=== PATIENT | male | born 1995 | race Caucasian/White ===

== ENCOUNTER 2017-06-27 20:52 | Inpatient (IN) | payer MEDICAID, OTHER ==
[~2017-06-27] VITALS: Ht 180.3 cm; Wt 63.6 kg
[~2017-06-27 20:52] MED LIST: Z.0.NO CURRENT MEDS
[2017-06-27 20:56] VITALS: BP 132/82; PULSE 82; RESP 20; TEMP 98.4; O2SAT 97
[2017-06-27 21:15] VITALS: RESP 19; O2SAT 100
--- NOTE | 2017-06-27 21:26 | RADRPT ---
EXAM DATE/TIME: 06/27/2017 21:21 [facility] COMPARISON: No previous studies available for comparison. INDICATIONS : Chest pain, denies injury MEDICAL HISTORY : None. SURGICAL HISTORY : None. ENCOUNTER: Initial ACUITY: 2 days PAIN SCORE: 2/10 LOCATION: chest FINDINGS: Large right-sided pneumothorax. There is slight mediastinal shift to the left. Left lung is clear. No pleural effusion seen. CONCLUSION: Large pneumothorax on the right with a mild tension component. Alex Lin MD on June 27, 2017 at 21:23 Board Certified Radiologist. This report was verified electronically.
[2017-06-27] MEDS ORDERED: KETAMINE HCL 500 MG/5 ML VIAL IV PUSH ONE (21:30)
[2017-06-27] MEDS ORDERED: SODIUM CHLORIDE 0.9% FLUSH 10 ML FLUSH IVF PRN (21:30)
[2017-06-27] MEDS ORDERED: LIDOCAINE 1%/EPINEPHrine 1:100,000 SOLN 20 ML VIAL INFIL ONE (21:30)
[2017-06-27] MEDS ORDERED: LIDOCAINE 1%/EPINEPHrine 1:100,000 SOLN 50 ML VIAL ONE (21:40)
[2017-06-27] MEDS ORDERED: ONDANSETRON HCL 4 MG/2 ML VIAL ONE (21:44)
[2017-06-27] MEDS ORDERED: LORazepam 2 MG/ML VIAL IV PUSH ONE (21:45)
[2017-06-27] MEDS ORDERED: HYDROmorphone HCL PF 2 MG/ML VIAL IV PUSH ONE (21:45)
--- NOTE | 2017-06-27 22:10 | RADRPT ---
EXAM DATE/TIME: 06/27/2017 21:51 [facility] COMPARISON: No previous studies available for comparison. INDICATIONS : Post chest tube placement right lung MEDICAL HISTORY : None. SURGICAL HISTORY : None. ENCOUNTER: Subsequent ACUITY: 2 days PAIN SCORE: 6/10 LOCATION: Right chest FINDINGS: Small caliber chest tube has been placed laterally on the right. Right pneumothorax is now small. No tension component. No infiltrate or effusion. CONCLUSION: Much decreased right pneumothorax after chest tube placement, currently small. No tension. Alex Lin MD on June 27, 2017 at 22:07 Board Certified Radiologist. This report was verified electronically.
[2017-06-27 22:32] LABS: AUTOMATED NEUTROPHIL # 5.8 TH/MM3 (1.8-7.7); BASOPHIL % 0.4 % (0.0-2.0); EOSINOPHIL # 0.3 TH/MM3 (0-0.4); EOSINOPHIL % 3.5 % (0.0-4.0); HEMATOCRIT 41.5 % (39.0-51.0); HEMOGLOBIN 14.7 GM/DL (13.0-17.0); LYMPH % 23.5 % (9.0-44.0); LYMPHOCYTE # 2.1 TH/MM3 (1.0-4.8); MEAN CELL VOLUME 85.9 FL (80.0-100.0); MEAN CORPUSCULAR HEMOGLOBIN 30.4 PG (27.0-34.0); MEAN CORPUSCULAR HGB CONC 35.4 % (32.0-36.0); MONO % 6.9 % (0.0-8.0); MONOCYTE # 0.6 TH/MM3 (0-0.9); NEUT % 65.7 % (16.0-70.0); PLATELET COUNT 235 TH/MM3 (150-450); RED BLOOD COUNT 4.83 MIL/MM3 (4.50-5.90); RED CELL DISTRIBUTION WIDTH 12.8 % (11.6-17.2); WHITE BLOOD COUNT 8.8 TH/MM3 (4.0-11.0)
[2017-06-27 22:42] LABS: BICARBONATE 27.8 MEQ/L (21.0-32.0); CALCIUM 8.6 MG/DL (8.5-10.1); CREATININE 0.83 MG/DL (0.60-1.30)
[2017-06-27 22:52] LABS: PROTHROMBIN TIME - PATIENT 10.4 SEC (9.8-11.6)
[2017-06-27] MEDS ORDERED: LACTULOSE SYRUP 20 GM/30 ML CUP PO PRN (23:00)
[2017-06-27] MEDS ORDERED: SODIUM CHLORIDE 0.9% FLUSH 10 ML FLUSH IV FLUSH PRN (23:00)
[2017-06-27] MEDS ORDERED: RESP: ALBUTEROL 2.5 MG/IPRATROPIUM 0.5 MG NEB (PRN) INH (23:00)
[2017-06-27] MEDS ORDERED: BISACODYL 10 MG SUPP RECTAL PRN (23:00)
[2017-06-27] MEDS ORDERED: SENNOSIDES 8.6 MG TAB PO PRN (23:00)
[2017-06-27] MEDS ORDERED: MISCELLANEOUS NURSING INFORMATION XX SCH (23:00)
[2017-06-27] MEDS ORDERED: CHLORHEXIDINE GLUCONATE 2 % 1 PACK (2 CLOTHS) TOP PRN (23:00)
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
[2017-06-27] MEDS: SODIUM CHLOR 0.9% 1000 ML INJ 1,000 ML IV SCH (23:38)
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
[2017-06-27] MEDS ORDERED: IOHEXOL 350 MG/ML 10 ML VIAL (for RAD DIAG) IVCONTRAST ONE (23:45)
[2017-06-28] VITALS (16 sets, daily range): BP systolic 101–135; BP diastolic 53–81; PULSE 59–82; RESP 16–25; TEMP 97.7–99.2; O2SAT 95–96
--- NOTE | 2017-06-28 00:04 | RADRPT ---
EXAM DATE/TIME: 06/27/2017 23:44 [facility] COMPARISON: No previous studies available for comparison. INDICATIONS : Short of breath and chest pain, pneumothorax, and post chest tube placement. IV CONTRAST: 60 cc Omnipaque 350 (iohexol) IV RADIATION DOSE: 5.10 CTDIvol (mGy) MEDICAL HISTORY : None SURGICAL HISTORY : None. ENCOUNTER: Initial ACUITY: 1 day PAIN SCALE: 8/10 LOCATION: chest TECHNIQUE: Volumetric scanning of the chest was performed. Using automated exposure control and adjustment of t he mA and/or kV according to patient size, radiation dose was kept as low as reasonably achievable to obtain optimal diagnostic quality images. DICOM format image data is available electronically for review and comparison. Follow-up recommendations for detected pulmonary nodules are based at a minimum on nodule size and pa tient risk factors according to Fleischner Society Guidelines. FINDINGS: LUNGS: There multiple patchy areas of suspected consolidation or atelectasis seen throughout the right lung being most prominent in the posterior aspect of the right upper lobe. The left lung is clear. Emphyse matous changes not seen. PLEURA: There is a persistent right pneumothorax measuring up to 2.8 cm anteriorly. There is a right-sided pi gtail catheter in place. This appears well placed. MEDIASTINUM: The heart and great vessels demonstrate no acute abnormality. There is no mediastinal or hilar lymph adenopathy. AXILLAE: Within normal limits. No lymphadenopathy. SKELETAL: Within normal limits for patient age. MISCELLANEOUS: The visualized upper abdominal organs demonstrate no acute abnormality. CONCLUSION: 1. Persistent moderate pneumothorax on the right with a pigtail catheter in the right pleural space. 2. Patchy areas of consolidation or atelectasis seen throughout the right lung. Alex Chang MD on June 27, 2017 at 23:59 Board Certified Radiologist. This report was verified electronically.
[2017-06-28] MEDS: oxyCODONE/ACETAMINOPHEN 5 MG/325 MG TAB PO PRN ×3 (00:09→13:02)
[2017-06-28] MEDS: CHLORHEXIDINE GLUCONATE 2 % 1 PACK (2 CLOTHS) TOP SCH (04:00)
[2017-06-28] MEDS: ENOXAPARIN SODIUM 40 MG/0.4 ML SYRINGE SQ SCH (08:08)
[2017-06-28] MEDS: SODIUM CHLORIDE 0.9% FLUSH 10 ML FLUSH IV FLUSH SCH ×2 (08:08→21:00)
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
[2017-06-28] MEDS: SODIUM CHLOR 0.9% 1000 ML INJ 1,000 ML IV SCH ×2 (10:55→23:16)
[2017-06-29] VITALS (13 sets, daily range): BP systolic 116–143; BP diastolic 59–74; PULSE 52–78; RESP 19–26; TEMP 98–99.3; O2SAT 91–100
[2017-06-29] MEDS: CHLORHEXIDINE GLUCONATE 2 % 1 PACK (2 CLOTHS) TOP SCH (04:00)
--- NOTE | 2017-06-29 06:25 | RADRPT ---
EXAM DATE/TIME: 06/29/2017 04:14 [facility] COMPARISON: CHEST SINGLE AP, June 27, 2017, 21:51. INDICATIONS : Follow up right pneumothorax. MEDICAL HISTORY : None. SURGICAL HISTORY : None. ENCOUNTER: Subsequent ACUITY: 3 days PAIN SCORE: Non-responsive. LOCATION: Bilateral chest FINDINGS: There is a large tension pneumothorax seen on the right. There is a right chest tube in place. There is shift of the heart and mediastinal structures towards the left. The left lung is clear. The heart size is normal. CONCLUSION: Large tension pneumothorax on the right. There is a right pigtail catheter in the lateral aspect of t he right chest. This information was relayed to Abel, the patient's nurse. Alex Chang MD on June 29, 2017 at 6:13 Board Certified Radiologist. This report was verified electronically.
[2017-06-29] MEDS ORDERED: LIDOCAINE HCL 2% 50 ML VIAL INFIL ONE (07:00)
[2017-06-29] MEDS ORDERED: MIDAZOLAM HCL 5 MG/ML VIAL (1 ML) ONE (07:00)
[2017-06-29] MEDS ORDERED: MIDAZOLAM HCL 5 MG/ML VIAL (1 ML) IV PUSH ONE (08:15)
--- NOTE | 2017-06-29 08:36 | RADRPT ---
EXAM DATE/TIME: 06/29/2017 07:31 [facility] COMPARISON: CHEST SINGLE AP, June 29, 2017, 4:14. INDICATIONS : Chest tube. MEDICAL HISTORY : None. SURGICAL HISTORY : None. ENCOUNTER: Subsequent ACUITY: 4 - 6 days PAIN SCORE: 5/10 LOCATION: Bilateral chest FINDINGS: AP upright portable view of the chest demonstrates interval placement of a right-sided chest tube and drain within the inferior right chest. There has been a region of the right lung with only a small r ight apical pneumothorax present measuring 1.8 cm craniocaudally at the lung apex. The left hemithora x is clear. The heart size is normal. Pulmonary vasculature appears normal. CONCLUSION: Interval placement of a right-sided chest tube and drain within the right lung base. Significant reex pansion of the right hemithorax with only a small right apical pneumothorax present. Rain Rodrigues MD on June 29, 2017 at 8:32 Board Certified Radiologist. This report was verified electronically.
[2017-06-29] MEDS: SODIUM CHLORIDE 0.9% FLUSH 10 ML FLUSH IV FLUSH SCH ×2 (09:21→20:10)
[2017-06-29] MEDS: ENOXAPARIN SODIUM 40 MG/0.4 ML SYRINGE SQ SCH (09:22)
[2017-06-29] MEDS: oxyCODONE/ACETAMINOPHEN 5 MG/325 MG TAB PO PRN ×3 (09:36→20:10)
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
[2017-06-29] MEDS: SODIUM CHLOR 0.9% 1000 ML INJ 1,000 ML IV SCH ×2 (10:41→20:15)
--- NOTE | 2017-06-29 16:44 | RADRPT ---
EXAM DATE/TIME: 06/29/2017 16:01 [facility] COMPARISON: CHEST SINGLE AP, June 29, 2017, 7:31. INDICATIONS : Follow up right pneumothorax. MEDICAL HISTORY : None. SURGICAL HISTORY : None. ENCOUNTER: Subsequent ACUITY: 3 days PAIN SCORE: 7/10 LOCATION: Right chest FINDINGS: Single AP view of the chest. 2 right-sided chest tubes remain in place. Right-sided pneumothorax is a gain seen. It now measures 13 mm at the apex compared to 18 mm on the prior study of earlier today. L ungs are clear. CONCLUSION: Decrease in size of right apical pneumothorax. 2 right-sided chest tubes remain in place. Se Kiser MD on June 29, 2017 at 16:41 Board Certified Radiologist. This report was verified electronically.
--- NOTE | 2017-06-29 16:47 | PD.PROCEDR ---
Procedure Note Procedure Tube Thoracostomy Procedure Note Diagnosis: Large right pneumothorax Indications: Same as above Consent: Verbal consent was obtained from the patient Anesthesia: Midazolam and fentanyl Description of the Procedure: The patient was placed in the supine position. The arm was abducted above the head and secured. The right lateral chest was prepped and draped sterilely to include the axilla and nipple. 1% Lidocaine was infiltrated subcutaneously and into the tissues down to the periosteum of the rib. The 5th intercostal space was identified. A small incision was made using a #11 blade. At the mid-axillary line, blunt dissection was performed until the rib was palpated. A Marge clamp was used to bluntly enter the pleura immediately above the adjacent rib. The space was opened bluntly with the Marge clamp. A finger was inserted and lung and pleura were felt. A 28 Fr chest tube was inserted along the course of the finger and into the pleural cavity easily and without resistance. The chest tube was connected to a Pleur-o-vac and connected to 20 cm H2O suction. The catheter was sutured to the skin using a 0 silk sandal suture and an occlusive dressing was applied. There were no immediate complications noted. There was minimal EBL. The patient tolerated the procedure well. Chest Tube output: gush of air upon entry in the pleural space A Chest x-ray has been ordered and reviewed. Chest tube is in good position and pneumothorax is improved. Joel Burnett MD Jun 29, 2017 16:47
[2017-06-29] MEDS ORDERED: MORPHINE SULFATE 2 MG/ML INJ IM PRN (18:15)
[2017-06-30] VITALS (13 sets, daily range): BP systolic 102–143; BP diastolic 60–79; PULSE 58–86; RESP 17–27; TEMP 97.9–98.3; O2SAT 97–100
[2017-06-30] MEDS: CHLORHEXIDINE GLUCONATE 2 % 1 PACK (2 CLOTHS) TOP SCH (04:00)
[2017-06-30] MEDS: oxyCODONE/ACETAMINOPHEN 5 MG/325 MG TAB PO PRN ×4 (04:28→21:45)
[2017-06-30 05:11] LABS: HEMATOCRIT 42.8 % (39.0-51.0); MEAN CELL VOLUME 86.6 FL (80.0-100.0); MEAN CORPUSCULAR HEMOGLOBIN 30.3 PG (27.0-34.0); MEAN CORPUSCULAR HGB CONC 34.9 % (32.0-36.0); MEAN PLATELET VOLUME 8.8 FL (7.0-11.0); PLATELET COUNT 215 TH/MM3 (150-450); RED BLOOD COUNT 4.94 MIL/MM3 (4.50-5.90); RED CELL DISTRIBUTION WIDTH 12.8 % (11.6-17.2); WHITE BLOOD COUNT 7.2 TH/MM3 (4.0-11.0)
[2017-06-30 05:31] LABS: BICARBONATE 28.4 MEQ/L (21.0-32.0); CALCIUM 8.5 MG/DL (8.5-10.1); CREATININE 0.8 MG/DL (0.60-1.30)
[2017-06-30] MEDS: SODIUM CHLORIDE 0.9% FLUSH 10 ML FLUSH IV FLUSH SCH (09:00)
--- NOTE | 2017-06-30 09:10 | RADRPT ---
EXAM DATE/TIME: 06/30/2017 08:35 [facility] COMPARISON: CHEST SINGLE AP, June 29, 2017, 16:01. INDICATIONS : Shortness of breath. Evaluate for pneumothorax. MEDICAL HISTORY : None. SURGICAL HISTORY : None. ENCOUNTER: Subsequent ACUITY: 3 days PAIN SCORE: 0/10 LOCATION: Bilateral chest FINDINGS: Right sided chest tubes with decrease in size of a right apical pneumothorax now measuring only 9 mm within the lung apex as compared to 1.3 cm on prior exam. The left hemithorax is clear. Heart size is normal and pulmonary vasculature is normal. Osseous structures appear intact. CONCLUSION: Decreasing size of the right-sided pneumothorax with only a small apical pneumothorax present now lesly suring 9 mm. Rain Rodrigues MD on June 30, 2017 at 9:06 Board Certified Radiologist. This report was verified electronically.
[2017-06-30] MEDS: ENOXAPARIN SODIUM 40 MG/0.4 ML SYRINGE SQ SCH (09:30)
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
--- NOTE | 2017-06-30 12:32 | EKG ---
Date Performed: 06/29/2017 Time Performed: 12:23:20 PTAGE: 21 years EKG: Sinus arrhythmia. Possible right atrial abnormality Compared to previous tracing, rate has slowed Borderline ECG NO PREVIOUS TRACING DOCTOR: Negro Staton Interpretating Date/Time 06/30/2017 12:31:12
[2017-07-01] VITALS (12 sets, daily range): BP systolic 123–138; BP diastolic 57–74; PULSE 60–109; RESP 14–21; TEMP 97.9–98.8; O2SAT 97–100
[2017-07-01] MEDS: CHLORHEXIDINE GLUCONATE 2 % 1 PACK (2 CLOTHS) TOP SCH (04:00)
[2017-07-01] MEDS: oxyCODONE/ACETAMINOPHEN 5 MG/325 MG TAB PO PRN ×4 (04:32→20:07)
--- NOTE | 2017-07-01 05:16 | RADRPT ---
EXAM DATE/TIME: 07/01/2017 04:20 [facility] COMPARISON: CHEST SINGLE AP, June 30, 2017, 8:35. INDICATIONS : Short of breath. MEDICAL HISTORY : None. SURGICAL HISTORY : None. ENCOUNTER: Initial ACUITY: 1 week PAIN SCORE: 0/10 LOCATION: Bilateral chest FINDINGS: A single view of the chest demonstrates a slight increase in size of right pneumothorax is seen at 28 with about 2 cm of pleural separation. Right chest tube remains in place. Left lung clear. No new co nsolidation or effusion. CONCLUSION: 1. Right chest tube with small right pneumothorax which is increased in size from June 30. Previou s small caliber right chest tube has been removed. Left lung clear. Laureano Ariza MD on July 01, 2017 at 5:11 Board Certified Radiologist. This report was verified electronically.
[2017-07-01] MEDS: ENOXAPARIN SODIUM 40 MG/0.4 ML SYRINGE SQ SCH (08:03)
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
[2017-07-01] MEDS: MAGNESIUM HYDROXIDE SUSP 30 ML CUP PO PRN (15:49)
[2017-07-02] VITALS (10 sets, daily range): BP systolic 128–140; BP diastolic 73–86; PULSE 70–88; RESP 18–19; TEMP 98.4–99.2; O2SAT 95–99
[2017-07-02] MEDS ORDERED: CYCLOBENZAPRINE HCL 10 MG TAB PO ONE (01:00)
[2017-07-02] MEDS: CHLORHEXIDINE GLUCONATE 2 % 1 PACK (2 CLOTHS) TOP SCH (03:11)
[2017-07-02] MEDS: oxyCODONE/ACETAMINOPHEN 5 MG/325 MG TAB PO PRN (06:07)
--- NOTE | 2017-07-02 07:06 | RADRPT ---
EXAM DATE/TIME: 07/02/2017 05:51 [facility] COMPARISON: CHEST SINGLE AP, July 01, 2017, 4:20. INDICATIONS : Evaluate pneumothorax and right side chest tube MEDICAL HISTORY : pneumothorax SURGICAL HISTORY : chest tube ENCOUNTER: Subsequent ACUITY: 1 week PAIN SCORE: 8/10 LOCATION: Bilateral chest FINDINGS: Right chest tube remains in place. [id number] pneumothorax at the apex again seen, not signifi cantly changed. Mild left base atelectasis. No large effusion demonstrated. No left pneumothorax. Heart size within normal limits. CONCLUSION: No significant change small to moderate right pneumothorax. Right chest tube remains in place. Alex Lin MD on July 02, 2017 at 7:03 Board Certified Radiologist. This report was verified electronically.
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
--- NOTE | 2017-07-02 08:27 | RADRPT ---
EXAM DATE/TIME: 07/02/2017 08:10 [facility] COMPARISON: CT THORAX W CONTRAST, June 27, 2017, 23:44. INDICATIONS : Follow up for right pneumothorax RADIATION DOSE: 5.54 CTDIvol (mGy) MEDICAL HISTORY : Right pneumothorax SURGICAL HISTORY : None. ENCOUNTER: Subsequent ACUITY: 4 - 6 days PAIN SCALE: 6/10 LOCATION: Right chest TECHNIQUE: Volumetric scanning of the chest was performed. Using automated exposure control and adjustment of t he mA and/or kV according to patient size, radiation dose was kept as low as reasonably achievable to obtain optimal diagnostic quality images. DICOM format image data is available electronically for r eview and comparison. Follow-up recommendations for detected pulmonary nodules are based at a minimum on nodule size and pa tient risk factors according to Fleischner Society Guidelines. FINDINGS: LUNGS: Right-sided chest tube is seen which is in the major fissure. Small anterior, lateral and basilar pne umothorax. There is minimal right apical density. No concerning pulmonary nodule is visualized. PLEURAE: Small hemothorax on the right. There is no pleural thickening or pleural effusion on the left. MEDIASTINUM: The heart and great vessels demonstrate no acute abnormality. There is no mediastinal or hilar lymph adenopathy. AXILLAE: Within normal limits. No lymphadenopathy. MUSCULOSKELETAL: Within normal limits for patient age. MISCELLANEOUS: The visualized upper abdominal organs demonstrate no acute abnormality. CONCLUSION: 1. The right-sided chest tube is seen and lies within the major fissure. 2. Small pneumothorax remains on the right. 3. Minimal density in the right upper lobe has almost completely resolved. Mg Ross MD on July 02, 2017 at 8:21 Board Certified Radiologist. This report was verified electronically.
[2017-07-02] MEDS: ENOXAPARIN SODIUM 40 MG/0.4 ML SYRINGE SQ SCH (09:10)
[2017-07-02] MEDS ORDERED: CYCLOBENZAPRINE HCL 10 MG TAB PO PRN (11:15)
[2017-07-02] MEDS ORDERED: PILL SPLITTER OTHER PRN (12:00)
[2017-07-02] MEDS: MAGNESIUM HYDROXIDE SUSP 30 ML CUP PO PRN (15:20)
--- NOTE | 2017-07-02 15:22 | PD.CAR.PN ---
CVT Progress Note Subjective/Hospital Course: no air leak clamp tube overnight unclamp for any distress if persistent PTX, eval for vats tomorrow NPO after midnight Objective: Vital Signs Date Time Temp Pulse Resp B/P (MAP) Pulse Ox O2 Delivery O2 Flow Rate FiO2 07/02/17 12:02 98.4 70 18 130/84 (99) 97 07/02/17 08:02 98.5 72 18 129/86 (100) 97 07/02/17 07:47 71 07/02/17 04:00 99.2 85 18 137/77 (97) 95 07/02/17 03:45 78 07/02/17 00:04 75 07/02/17 00:00 98.8 82 19 137/73 (94) 97 07/02/17 00:00 Room Air 07/01/17 20:29 74 07/01/17 20:00 Room Air 07/01/17 20:00 98.8 82 18 136/70 (92) 97 07/01/17 16:02 98.2 68 18 134/72 (92) 99 07/01/17 16:00 109 Result Diagram: 06/30/17 0420 06/30/17 0420 Rain Bal Jul 02, 2017 15:22
[2017-07-02] MEDS ORDERED: SOD PHOSPHATE/SOD BIPHOSPHATE (ADULT) ENEMA 133ML RECTAL PRN (15:45)
[2017-07-02] MEDS ORDERED: GLYCERIN ADULT 2 GM SUPP RECTAL ONE (15:45)
[2017-07-02] MEDS ORDERED: LACTULOSE SYRUP 20 GM/30 ML CUP PO ONE (15:45)
[2017-07-03] VITALS (9 sets, daily range): BP systolic 121–137; BP diastolic 59–79; PULSE 64–84; RESP 17–19; TEMP 97.7–99.2; O2SAT 97–98
[2017-07-03] MEDS: CHLORHEXIDINE GLUCONATE 2 % 1 PACK (2 CLOTHS) TOP SCH ×2 (03:24→03:34)
--- NOTE | 2017-07-03 06:43 | RADRPT ---
EXAM DATE/TIME: 07/03/2017 05:57 [facility] COMPARISON: CHEST SINGLE AP, July 02, 2017, 5:51. INDICATIONS : Evaluate pneumothorax. MEDICAL HISTORY : pneumothorax. SURGICAL HISTORY : chest tube ENCOUNTER: Subsequent ACUITY: 1 week PAIN SCORE: 8/10 LOCATION: Bilateral chest FINDINGS: A single view of the chest demonstrates right chest tube with small right pneumothorax slightly impro misti from July 02. Minimal subsegmental atelectasis in the lungs. No effusion. CONCLUSION: 1. Right chest tube with small right pneumothorax slightly improved from July 02. Laureano Ariza MD on July 03, 2017 at 6:39 Board Certified Radiologist. This report was verified electronically.
[2017-07-03] MEDS: ENOXAPARIN SODIUM 40 MG/0.4 ML SYRINGE SQ SCH (08:56)
[2017-07-03] MEDS ORDERED: POLYETHYLENE GLYCOL 17 GM PKG PO ONE (12:30)
[2017-07-03] MEDS ORDERED: BISACODYL EC 5 MG TABEC PO ONE (12:30)
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
--- NOTE | 2017-07-03 15:07 | PD.CAR.PN ---
CVT Progress Note Subjective/Hospital Course: no air leak clamp tube overnight unclamp for any distress if persistent PTX, eval for vats tomorrow NPO after midnight 07/03 CXR stable / small right PTX improved chest tube dc without difficultly vaseline gauze dressing to chest recheck CXR in am , if stable , then ok to dc with f/u CXR in 2 weeks and office visit Objective: GENERAL: SKIN: Warm and dry. HEAD: Normocephalic. EYES: No scleral icterus. No injection or drainage. NECK: Supple, trachea midline. No JVD or lymphadenopathy. CARDIOVASCULAR: Regular rate and rhythm without murmurs, gallops, or rubs. RESPIRATORY: Breath sounds equal bilaterally. No accessory muscle use. right chest tube removed, pigtail site intact / no drainage GASTROINTESTINAL: Abdomen soft, non-tender, nondistended. MUSCULOSKELETAL: No cyanosis, or edema. BACK: Nontender without obvious deformity. No CVA tenderness. Vital Signs Date Time Temp Pulse Resp B/P (MAP) Pulse Ox O2 Delivery O2 Flow Rate FiO2 07/03/17 12:02 99.1 72 17 125/68 (87) 97 07/03/17 12:00 84 07/03/17 08:02 97.7 66 17 133/79 (97) 98 07/03/17 08:00 64 07/03/17 04:00 98.8 74 19 137/75 (95) 97 07/03/17 04:00 64 07/03/17 00:00 99.1 80 18 133/75 (94) 97 07/03/17 00:00 74 07/02/17 21:55 88 07/02/17 21:55 99 Room Air 07/02/17 20:00 98.9 80 18 140/75 (96) 99 07/02/17 16:02 98.4 72 18 128/82 (97) 96 Result Diagram: 06/30/1741906/30/17 042 (1) Tension pneumothorax Plan: s/p pigtail cath/ removed s/p 32french right chest tube removed vaseline gauze to chest no shower or removal of dressing x 48 hrs then ok to shower f/u CXR in am ,. if stable , the ok to dc Rain Bal Jul 03, 2017 15:07
[2017-07-04 00:28] VITALS: BP 118/62; PULSE 76; RESP 16; TEMP 98.7; O2SAT 99
[2017-07-04] MEDS: CHLORHEXIDINE GLUCONATE 2 % 1 PACK (2 CLOTHS) TOP SCH (03:49)
[2017-07-04 04:50] VITALS: BP 116/57; PULSE 65; RESP 16; TEMP 97.5; O2SAT 97
--- NOTE | 2017-07-04 07:27 | RADRPT ---
EXAM DATE/TIME: 07/04/2017 06:49 [facility] COMPARISON: CHEST SINGLE AP, July 03, 2017, 5:57. INDICATIONS : Follow up post chest tube removal right side, evaluate for pneumothorax MEDICAL HISTORY : pneumothorax SURGICAL HISTORY : chest tube ENCOUNTER: Subsequent ACUITY: 1 week PAIN SCORE: 2/10 LOCATION: Right chest FINDINGS: Right chest tube has been removed. A small moderate right pneumothorax is present, about the same. No perceptible tension. There is mild atelectasis where the chest tube was in the right midlung. Left l peggy remains clear. Stable, normal heart size. CONCLUSION: Right chest tube out. Small to moderate pneumothorax unchanged. Alex Lin MD on July 04, 2017 at 7:24 Board Certified Radiologist. This report was verified electronically.
[2017-07-04 08:00] VITALS: BP 136/76; PULSE 73; PULSE 82; RESP 16; TEMP 97.8; O2SAT 98
[2017-07-04] MEDS: ENOXAPARIN SODIUM 40 MG/0.4 ML SYRINGE SQ SCH (09:00)
--- NOTE | 2017-07-04 10:02 | HHI.DCPOC ---
Discharge Care Plan Diagnosis: (1) s/p pnuemothorax (2) Tension pneumothorax Goals to Promote Your Health * To prevent worsening of your condition and complications * To maintain your health at the optimal level Directions to Meet Your Goals Take your medications as prescribed Follow your dietary instruction Follow activity as directed Keep your appointments as scheduled Take your immunizations and boosters as scheduled If your symptoms worsen call your PCP, if no PCP go to Urgent Care Center or Emergency Room Smoking is Dangerous to Your Health. Avoid second hand smoke Call the 24-hour hour crisis hotline for domestic abuse at Soto John DO Jul 04, 2017 10:02
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
== END 2017-07-04 14:41 | disposition home or self-care (01) | DRG 201 ==
LOC: NEPD 20:52 → NEDA 23:00 → N03A 06-28 00:21 → N04A 07-01 09:29
PROVIDERS: ADMIT Hospitalist; ATTEND Hospitalist
PROC: 0W9930Z Drainage of Right Pleural Cavity with Drainage Device, Percutaneous Approach (ICD-10-PCS; principal; 2017-06-27)
PROC: 0W9930Z Drainage of Right Pleural Cavity with Drainage Device, Percutaneous Approach (ICD-10-PCS; 2017-06-29)
DX: J93.0 Spontaneous tension pneumothorax (principal); F31.9 Bipolar disorder, unspecified; F90.9 Attention-deficit hyperactivity disorder, unspecified type; F17.290 Nicotine dependence, other tobacco product, uncomplicated; K59.00 Constipation, unspecified; J93.82 Other air leak
CPT/HCPCS: 32551; 71045; 71250; 71260; 80048; 85025; 85027; 85610; 85730; 87641; 93005; 96374; 96375; J1170; J1650; J2060; J2250; J2405; J3010; J7030; Q9967